=== PATIENT | female | born 1985 | race Caucasian/White ===

== ENCOUNTER 2023-05-01 21:10 | Outpatient (REF) | payer OTHER, SELFPAY ==
[2023-05-06 20:07] LABS: Age Gdln ACOG Testing Note (.); HPV Aptima Negative (Negative); IGP, Aptima HPV, rfx 16/18,45 Note (.)
== END 2023-05-01 21:11 | disposition home or self-care (01) ==
LOC: LAB 21:10
PROVIDERS: Visit Provider Physician Assistant
DX: Z01.419 Encounter for gynecological examination (general) (routine) without abnormal findings (principal)
CPT/HCPCS: 87624; G0145

== ENCOUNTER 2024-09-28 12:27 | Emergency (ER) | payer OTHER, SELFPAY ==
[2024-09-28 12:36] VITALS: BP 143/87; PULSE 74; TEMP 36.8; O2SAT 100; BMI 25.5
--- NOTE | 2024-09-28 13:11 | US_ITS ---
The [address] [address] Patient Name: WILLY BUSTOS MRN: [id number] date: 1985 Sex: F Assigned Patient Location: ED.MAIN Current Patient Location: ER Accession/Order Number: [id number] Exam Date: 09/28/2024 13:25 Report Date: 09/28/2024 14:23 At the request of: ABDULAZIZ CANO Procedure: US OB transvaginal EXAMINATION: US OB transvaginal HISTORY: Vaginal bleeding, rule out ectopic COMPARISON: No relevant comparison available. FINDINGS: GESTATIONAL SAC: Present; 3 mm YOLK SAC: Absent POLE: Absent CARDIAC: Absent UTERUS: Normal size and appearance. OVARIES: Right: Normal. Left: Contains a 4.8 cm anechoic simple appearing cyst and a smaller 1.9 cm complex/corpus lutein cyst. CERVIX: 3.5 cm in length and closed. CUL-DE-SAC: Normal. OTHER: None. AGE BY LMP: 6 weeks 4 days ANTOINE BY LMP: 05/20/2025 AGE BY US SAC SIZE: Too small characterize. ANTOINE BY US SAC SIZE: US/US OB transvaginal IMPRESSION: 1. Small 3 mm round fluid collection within endometrial cavity possibly representing a very early gestational sac. 2. No findings to suggest ectopic . Electronically authenticated by: ZANDER DHALIWAL Date: 09/28/2024 14:23
[2024-09-28 13:12] LABS: Basophils Percent Auto 0.7 % (0.2-2.0); Eosinophils Percent Auto 0.2 % (0.9-7.0); Hematocrit 32.7 % (36.0-48.0); Hemoglobin 10.7 g/dL (12.0-16.0); Immature Granulocytes Abs Auto 0.01 10^3/uL (0.00-0.03); Immature Granulocytes Pct Auto 0.2 % (0.0-0.5); Lymphocytes Absolute Auto 0.8 10^3/uL (1.2-3.8); Lymphocytes Percent Auto 19.7 % (20.5-60.0); Mean Corpuscular HGB Conc 32.7 g/dL (29.9-35.2); Mean Corpuscular Hemoglobin 29.7 pg (26.7-34.0); Mean Corpuscular Volume 90.8 fL (81.0-99.0); Mean Platelet Volume 11.6 fL (9.5-13.5); Monocytes Absolute Auto 0.4 10^3/uL (0.3-0.8); Monocytes Percent Auto 8.7 % (1.7-12.0); Neutrophils Absolute Auto 2.9 10^3/uL (1.4-6.5); Neutrophils Percent Auto 70.5 % (43.0-75.0); Platelet Count 178 10^3/uL (150-450); White Blood Count 4.2 10^3/uL (4.0-11.0)
--- NOTE | 2024-09-28 13:12 | ED.FEMALEGU1 ---
HPI - Female Genitourinary General Chief complaint: Vaginal Bleeding Stated complaint: VAGINAL BLEEDING 6 WEEKS Time Seen by Provider: 09/28/24 13:11 Source: patient Mode of arrival: walk-in Limitations: no limitations History of Present Illness HPI Narrative: Patient is a 39-year-old female who presents to the emergency department at approximately 6 to 7 weeks of for evaluation of vaginal bleeding that began yesterday. She reports heavier bleeding today which prompted her to come to the emergency room. She reports mild pelvic cramping and mild low back pain. No urinary symptoms. No medications taken prior to arrival. She had no issues with her first . Related Data Allergies Allergy/AdvReac Type Severity Reaction Status Date / Time No Known Drug Allergies Allergy Verified 09/28/24 12:36 Review of Systems ROS Constitutional Denies: fever or chills Ears, nose, mouth, and throat Denies: throat pain Respiratory Denies: shortness of breath Gastrointestinal Reports: abdominal pain; Denies: nausea or vomiting Genitourinary Reports: pelvic pain Integumentary/Breast Denies: rash Neurological Denies: numbness in extremities or weakness in extremities Hematologic/Lymphatic Denies: easy bruising or easy bleeding PFSH PFSH Social History Little interest or pleasure in doing things: not at all Feeling down, depressed, or hopeless: not at all Exam Narrative Exam Narrative: Gen.: Awake, alert, in no distress Head: Normocephalic, atraumatic ENT: Moist mucous membranes Respiratory: No respiratory distress Gastrointestinal: Abdomen is soft, nondistended and nontender to palpation Extremities: Moves extremities equally Psych: Normal mood and affect Neuro: No focal neuro deficit Skin: Warm, dry, intact Constitutional Vital Signs, click to edit/add: Last Vital Signs Temp 98.3 F 09/28/24 12:36 Pulse 67 09/28/24 14:58 Resp 18 09/28/24 14:58 BP 130/75 09/28/24 14:58 Pulse Ox 98 09/28/24 14:58 O2 Del Method Room Air 09/28/24 14:58 Course Vital Signs Vital signs: Vital Signs Temperature 98.3 F 09/28/24 12:36 Pulse Rate 74 09/28/24 12:36 Respiratory Rate 18 09/28/24 12:36 Blood Pressure 143/87 H 09/28/24 12:36 Pulse Oximetry 100 09/28/24 12:36 Oxygen Delivery Method Room Air 09/28/24 12:36 Temperature 98.3 F 09/28/24 12:36 Pulse Rate 67 09/28/24 14:58 Respiratory Rate 18 09/28/24 14:58 Blood Pressure 130/75 09/28/24 14:58 Pulse Oximetry 98 09/28/24 14:58 Oxygen Delivery Method Room Air 09/28/24 14:58 MDM - Female Genitourinary MDM Narrative Medical decision making narrative: Quantitative hCG level is 316 with A+ blood type. Ultrasound shows possible very early gestational sac in the uterus with no evidence of ectopic . Patient is hemodynamically stable. She was given instructions for threatened miscarriage versus earlier than anticipated. Repeat quantitative hCG level ordered for outpatient in 2 days and follow-up with [facility]. Return to the ER if symptoms change or worsen SUPERVISED APC VISIT, PHYSICIAN ATTESTATION: Based on the medical record the care appears appropriate. ? Medical Records Attestation: I reviewed the patient's medical records. Lab Data Attestation: I reviewed the patient's lab results. Labs: Lab Results 09/28/24 Range/Units 13:00 WBC 4.2 (4.0-11.0) 10^3/uL RBC 3.60 L (4.20-5.40) 10^6/uL Hgb 10.7 L (12.0-16.0) g/dL Hct 32.7 L (36.0-48.0) % MCV 90.8 (81.0-99.0) fL MCH 29.7 (26.7-34.0) pg MCHC 32.7 (29.9-35.2) g/dL RDW 13.0 (11.0-15.0) % Plt Count 178 (150-450) 10^3/uL MPV 11.6 (9.5-13.5) fL Neut % (Auto) 70.5 (43.0-75.0) % Lymph % (Auto) 19.7 L (20.5-60.0) % [place] % (Auto) 8.7 (1.7-12.0) % Eos % (Auto) 0.2 L (0.9-7.0) % Baso % (Auto) 0.7 (0.2-2.0) % Neut # (Auto) 2.9 (1.4-6.5) 10^3/uL Lymph # (Auto) 0.8 L (1.2-3.8) 10^3/uL [place] # (Auto) 0.4 (0.3-0.8) 10^3/uL Eos # (Auto) 0.0 (0.0-0.7) 10^3/uL Baso # (Auto) 0.0 (0.0-0.1) 10^3/uL Abs Immat Gran (auto) 0.01 (0.00-0.03) 10^3/uL Imm/Tot Granulo (auto) 0.2 (0.0-0.5) % Sodium 140 (136-145) mmol/L Potassium 3.3 L (3.5-5.1) mmol/L Chloride 106 (98-107) mmol/L Carbon Dioxide 24.3 (21.0-32.0) mmol/L Anion Gap 13.0 BUN 9.0 (7.0-18.0) mg/dL Creatinine 0.79 (0.55-1.02) mg/dL Est GFR ( Amer) >60 (>=60 mL/min/1.73m^2) Est GFR (Non-Af Amer) >60 (>=60 mL/min/1.73m^2) BUN/Creatinine Ratio 11.4 Glucose 94 (74-106) mg/dL Calcium 8.2 L (8.5-10.1) mg/dL Total Bilirubin 0.3 (0.2-1.0) mg/dL AST 11 L (15-37) U/L ALT 24 (14-59) U/L Alkaline Phosphatase 77 (46-116) U/L Total Protein 6.2 L (6.4-8.2) g/dL Albumin 3.3 L (3.4-5.0) g/dL Globulin 2.9 g/dL Albumin/Globulin Ratio 1.1 HCG, Quant 316 mIU/mL Blood Type A Positive Antibody Screen Negative Imaging Data US - abdomen: Attestation: I have reviewed the pertinent imaging results. Radiologist's impression: ITS Impressions Transvaginal US 09/28/24 13:11 IMPRESSION: 1. Small 3 mm round fluid collection within endometrial cavity possibly representing a very early gestational sac. 2. No findings to suggest ectopic . Electronically authenticated by: ZANDER DHALIWAL Date: 09/28/2024 14:23 Discharge Plan Discharge Chief Complaint: Vaginal Bleeding Clinical Impression: Vaginal bleeding affecting early , Threatened miscarriage Patient Disposition: Home, Self-Care Time of Disposition Decision: 14:44 Condition: Good Print Language: Guyanese Instructions: Threatened Miscarriage (ED) Additional Instructions: Repeat quant level on 09/30/24 and follow up with Dr. Dia's office Referrals: Physician,Non-Staff, MD [Primary Care Provider] - 1 week Discharge Date/Time: 09/28/24 15:00
[2024-09-28 13:21] LABS: Alanine Aminotransferase 24 U/L (14-59); Albumin Globulin Ratio 1.1; Albumin Level 3.3 g/dL (3.4-5.0); Alkaline Phosphatase 77 U/L (46-116); Aspartate Amino Transferase 11 U/L (15-37); BUN Creatinine Ratio 11.4; Bilirubin Total 0.3 mg/dL (0.2-1.0); Calcium 8.2 mg/dL (8.5-10.1); Carbon Dioxide 24.3 mmol/L (21.0-32.0); Chloride 106 mmol/L (98-107); Estimated GFR (African America >60 (>=60 mL/min/1.73m^2); Estimated GFR (Non-African Ame >60 (>=60 mL/min/1.73m^2); Globulin 2.9 g/dL; Glucose 94 mg/dL (74-106); Potassium 3.3 mmol/L (3.5-5.1); Sodium 140 mmol/L (136-145); Total Protein 6.2 g/dL (6.4-8.2)
[2024-09-28] MEDS: ACETAMINOPHEN 325 MG TABLET 650 MG PO (13:26)
[2024-09-28 13:33] LABS: HCG Quantitative 316 mIU/mL
[2024-09-28 14:58] VITALS: BP 130/75; PULSE 67; O2SAT 98
== END 2024-09-28 15:00 | disposition home or self-care (01) ==
PROVIDERS: Emergency Provider Emergency Medicine
DX: O20.0 Threatened abortion (principal); Z3A.01 Less than 8 weeks gestation of pregnancy
CPT/HCPCS: 36415; 76817; 80053; 84702; 85025; 86850; 86900; 86901; 99284

== ENCOUNTER 2024-10-05 12:30 | Outpatient (OUT) | payer OTHER, SELFPAY ==
[2024-10-05 12:54] LABS: Basophils Absolute Auto 0.1 10^3/uL (0.0-0.1); Basophils Percent Auto 1.2 % (0.2-2.0); Eosinophils Absolute Auto 0.1 10^3/uL (0.0-0.7); Hematocrit 33.8 % (36.0-48.0); Hemoglobin 10.9 g/dL (12.0-16.0); Lymphocytes Absolute Auto 0.9 10^3/uL (1.2-3.8); Lymphocytes Percent Auto 21.4 % (20.5-60.0); Mean Corpuscular HGB Conc 32.2 g/dL (29.9-35.2); Mean Corpuscular Hemoglobin 29.5 pg (26.7-34.0); Mean Corpuscular Volume 91.6 fL (81.0-99.0); Mean Platelet Volume 11.2 fL (9.5-13.5); Monocytes Absolute Auto 0.4 10^3/uL (0.3-0.8); Monocytes Percent Auto 10.4 % (1.7-12.0); Neutrophils Absolute Auto 2.6 10^3/uL (1.4-6.5); Platelet Count 187 10^3/uL (150-450); Red Blood Count 3.69 10^6/uL (4.20-5.40); Red Cell Distribution Width 13.2 % (11.0-15.0)
[2024-10-05 13:33] LABS: HCG Quantitative 14 mIU/mL
== END 2024-10-05 12:31 | disposition home or self-care (01) ==
LOC: LAB 12:33
PROVIDERS: PCP Nurse Practitioner Family; Visit Provider Obstetrics & Gynecology
DX: O20.0 Threatened abortion (principal); R53.83 Other fatigue
CPT/HCPCS: 36415; 84702; 85025

== ENCOUNTER 2025-02-16 15:12 | Outpatient (REF) | payer OTHER, SELFPAY ==
[2025-02-19 14:08] LABS: Age Gdln ACOG Testing Note (.); HPV Aptima Negative (Negative); IGP, Aptima HPV, rfx 16/18,45 Note (.)
== END 2025-02-16 15:13 | disposition home or self-care (01) ==
LOC: LAB 15:12
PROVIDERS: PCP Nurse Practitioner Family; Visit Provider Obstetrics & Gynecology
DX: Z01.419 Encounter for gynecological examination (general) (routine) without abnormal findings (principal)
CPT/HCPCS: 87624; 88175